=== PATIENT | female | born 1965 | race Caucasian/White ===

== ENCOUNTER 2017-02-11 21:18 | Emergency (ER) | payer OTHER | END 2017-02-11 22:38 | disposition home or self-care (01) | LOC: FER 21:18 | DX: R60.0 Localized edema (principal); I10 Essential (primary) hypertension; Z88.2 Allergy status to sulfonamides; Z88.5 Allergy status to narcotic agent; Z88.1 Allergy status to other antibiotic agents; Z88.6 Allergy status to analgesic agent; Z79.899 Other long term (current) drug therapy | CPT/HCPCS: 99283 ==